=== PATIENT | female | born 1980 | race Caucasian/White ===

== ENCOUNTER 2018-12-23 18:38 | Emergency (ER) | payer MEDICAID ==
[~2018-12-23] VITALS: Ht 157.5 cm; Wt 99.8 kg
[2018-12-23 18:45] VITALS: BP_SYST 128
[2018-12-23] MEDS ORDERED: ALBU4TAB4 PO (18:57)
[2018-12-23] MEDS ORDERED: [UNRECOGNIZED DRUG - OTHER] OP (18:57)
[2018-12-23] MEDS ORDERED: PHEDM120 PO (18:57)
[2018-12-23] MEDS ORDERED: LORA10TA7 PO (18:57)
[2018-12-23] MEDS ORDERED: UMEC1BLS IH (18:57)
[2018-12-23] MEDS ORDERED: AZIT250T PO (18:57)
[2018-12-23] MEDS ORDERED: AMOX875T2 PO (18:57)
--- NOTE | 2018-12-23 19:00 | NUR ---
Patient to ER bed 3 to gown for evaluation. Side rails up.
--- NOTE | 2018-12-23 19:10 | NUR ---
Pt came to the ED for complaints of cough and sore throat with heart palpitations and generalzied weaness. Reports scooter was given Amoxicillin but it has not helped. Reported she was prescribed azithromycin and ventolin by her PMD today. Reprots that her symptoms were so bad she took Amoxicillin, Azithromycin, Ventolin, ALbuterol and a cough syrup with no relief. Reports she took albuterol for the firs time today. Denie n/v/d or fever. Denies chest pain. No other complaints/injuries noted. Will cont. to monitor.
[2018-12-23 19:35] LABS: BASOPHILS # (AUTO) 0.1 K/uL (0.0-0.2); EOSINOPHILS # (AUTO) 0.2 K/uL (0.0-0.4); EOSINOPHILS % (AUTO) 2.2 % (0.0-4.0); HEMOGLOBIN 13.4 g/dL (12.0-16.0); LYMPHOCYTES # (AUTO) 2.1 K/uL (1.0-5.5); LYMPHOCYTES % (AUTO) 21.2 % (20.5-51.5); MEAN CORPUSCULAR HEMOGLOBIN 29 pg (27-31); MEAN CORPUSCULAR HGB CONC 34 % (32-36); MEAN CORPUSCULAR VOLUME 86 fL (79.0-98.0); MONOCYTES # (AUTO) 0.9 K/uL (0.0-1.0); MONOCYTES % (AUTO) 9.2 % (1.7-9.3); NEUTROPHILS # (AUTO) 6.7 K/uL (1.8-7.7); NEUTROPHILS % (AUTO) 66.4 % (40.0-70.0); PLATELET COUNT (AUTO) 344 K/uL (130-430); RED BLOOD CELL COUNT(AUTO) 4.67 MIL/uL (4.2-6.2); RED CELL DISTRIBUTION WIDTH 14.6 % (9.0-15.0); WHITE BLOOD COUNT (AUTO) 10.1 K/uL (4.8-10.8)
--- NOTE | 2018-12-23 19:45 | NUR ---
ER at bedside examining patient.
[2018-12-23 19:50] LABS: ANION GAP 12 (5-15); CALCIUM 8.8 mg/dL (8.4-11.0); CHLORIDE 102 mmol/L (98-107); CREATININE 0.83 mg/dL (0.55-1.30); GLUCOSE 171 mg/dL (70-99); POTASSIUM 3.5 mmol/L (3.5-5.1); SODIUM SERUM 140 mmol/L (136-145); UREA NITROGEN, BLOOD 10 mg/dL (8-21)
[2018-12-23 19:54] LABS: GFR AFRICAN AMERICAN 99 mL/min (>90)
[2018-12-23 19:59] LABS: ALANINE AMINOTRANSFERASE 47 U/L (12-78); ALBUMIN 3.5 g/dL (3.4-4.8); ASPARTATE AMINOTRANSFERASE 24 U/L (10-37); TOTAL BILIRUBIN 0.1 mg/dL (0.0-1.0)
[2018-12-23] MEDS ORDERED: KETOROLAC TROMETHAMINE 30 MG VIAL IVP ONE (20:15)
[2018-12-23] MEDS ORDERED: NACL 0.9% 1,000 ML IV ONE ×2 (20:15→22:45)
[2018-12-23 21:16] LABS: BILIRUBIN,URINE NEGATIVE (NEGATIVE); CLARITY/URINE CLEAR (CLEAR); COLOR,URINE YELLOW (YELLOW); GLUCOSE,URINE NEGATIVE (NEGATIVE); KETONES,URINE NEGATIVE (NEGATIVE); LEUKOCYTE ESTERASE ,URINE NEGATIVE (NEGATIVE); NITRITE, URINE NEGATIVE (NEGATIVE); PH,URINE 7.5 (5.0-8.0); PROTEIN URINE NEGATIVE (NEGATIVE); UROBILINOGEN,URINE 0.2 (0.2-1.0)
[2018-12-23 21:21] LABS: BLOOD, URINE TRACE (NEGATIVE)
[2018-12-23 21:37] LABS: BACTERIA,URINE None Seen /HPF (None Seen); MUCUS,URINE None Seen /LPF (None Seen); RBC,URINE 0-3 /HPF (0-3); WBC,URINE 0-3 /HPF (0-3)
--- NOTE | 2018-12-23 22:37 | NUR ---
Pt stated she was hungry, meal provided with "okay" from [employer].
[2018-12-23] MEDS ORDERED: LORazepam 2 MG/ML VIAL (FOR ER USE) IVP ONE (23:00)
--- NOTE | 2018-12-23 23:00 | NUR ---
Pt states she is under a lot of stress and she feels a little anxious. ER made aware
--- NOTE | 2018-12-23 23:10 | NUR ---
Administered Ativan IVP per MD order. Tolerated well. Will cont. to monitor.
--- NOTE | 2018-12-23 23:51 | NUR ---
Pt states that she feels better. She feels like her HR is high due to her cough. ER made aware.
--- NOTE | 2018-12-24 01:42 | NUR ---
PT went to bathroom. Ambulated with steady gait. No signs of acute distress. Will cont. to monitor.
[2018-12-24 01:58] LABS: BARBITURATE, URINE NEGATIVE (NEG <=200); BENZODIAZEPINE, URINE NEGATIVE (NEG <=150); CANNABINOID, URINE NEGATIVE (NEG <=50); COCAINE, URINE NEGATIVE (NEG <=150); METHAMPHETAMINES SCREEN,URINE NEGATIVE (NEG <=500); OPIATE, URINE NEGATIVE (NEG <=100); PHENCYCLIDINE SCREEN,URINE NEGATIVE (NEG <=25); UR TRICYCLIC ANTIDEPRESSANTS NEGATIVE (NEG <=300); URINE AMPHETAMINE NEGATIVE (NEG <=500); URINE METHADONE NEGATIVE (NEG <=200); URINE OXYCODONE SCREEN NEGATIVE (NEG <=100); URINE PROPOXYPHENE SCREEN NEGATIVE (NEG <=300)
[2018-12-24 02:29] VITALS: BP_SYST 148
--- NOTE | 2018-12-24 02:29 | NUR ---
Patient given written and verbal discharge instructions and verbalizes understanding. ER MD Dr. Hudson discussed with patient the results and treatment provided. Patient in stable condition. ID arm band removed. Rx of cheratussin given. Patient educated on pain management and to follow up with PMD. Pain Scale 2/10, tolerable for pt. Pt able to ambulate with steady gait, no signs of acute distress. Opportunity for questions provided and answered. Medication side effect fact sheet provided.
== END 2018-12-24 02:29 | disposition home or self-care (01) ==
LOC: SED 18:38
DX: E86.0 Dehydration (principal); J20.9 Acute bronchitis, unspecified; R00.2 Palpitations; Z90.49 Acquired absence of other specified parts of digestive tract; Z79.899 Other long term (current) drug therapy
CPT/HCPCS: 36415; 71045; 80053; 80307; 81000; 81025; 84484; 85025; 93005; 96361; 96374; 96375; 99284; J1885; J2060; J7030

== ENCOUNTER 2019-01-31 23:14 | Emergency (ER) | payer MEDICAID ==
[~2019-01-31] VITALS: Ht 157.5 cm; Wt 94.8 kg
[~2019-01-31 23:14] MED LIST: ALBU4TAB4 PO; AMOX875T2 PO; AZIT250T PO; LORA10TA7 PO; PHEDM120 PO; UMEC1BLS IH; [UNRECOGNIZED DRUG - OTHER] OP
[2019-01-31 23:33] VITALS: BP_SYST 141
[2019-02-01] MEDS ORDERED: AMOXICILLIN 500 MG CAPSULE PO ONE (00:45)
[2019-02-01] MEDS ORDERED: BENZONATATE 100 MG CAPSULE (TESSALON) PO ONE (00:45)
[2019-02-01] MEDS ORDERED: PROMETHAZINE-DM 6.25 MG-15 MG/5 ML UDC PO ONE (00:45)
[2019-02-01] MEDS: BENZONATATE 100 MG CAPSULE (TESSALON) PO SCH ×2 (01:27→01:34)
[2019-02-01] MEDS ORDERED: PROMETHAZINE-DM 6.25 MG-15 MG/5 ML UDC ONE ×2 (01:29→01:44)
[2019-02-01] MEDS ORDERED: BENZONATATE 100 MG CAPSULE (TESSALON) ONE (01:31)
[2019-02-01 01:35] VITALS: BP_SYST 136
== END 2019-02-01 01:35 | disposition home or self-care (01) ==
LOC: SED 23:14
DX: J40 Bronchitis, not specified as acute or chronic (principal); R05 Cough; Z79.899 Other long term (current) drug therapy
CPT/HCPCS: 71046-TC; 99283